=== PATIENT | female | born 2000 | race Caucasian/White ===

== ENCOUNTER 2024-06-07 15:03 | Outpatient (CLI) | payer OTHER, SELFPAY ==
--- NOTE | ~2024-06-07 | CT_ITS ---
EXAMINATION: CTA chest PE protocol DATE: 06/07/2024 15:27 INDICATION: Chronic hypoxia TECHNIQUE: Computed tomography (CT) pulmonary angiogram of the chest was performed with 100 mL Omnipa que-350 intravenous contrast. Additional 3D reconstructions utilizing coronal maximum intensity proje ction (MIP) were performed. Automated exposure control and iterative reconstruction technique were em ployed. The dose-length product was 144.47 mGy-cm. COMPARISON: 03/16/2022 FINDINGS: No pulmonary emboli. Subtle patchy groundglass opacities in the basilar right lower lobe which are ne w since the prior study. No abnormal septal line thickening to suggest pulmonary edema or pleural eff usion. Heart size is normal. No pericardial effusion. Thoracic aorta is normal in caliber with no dis section. No pathologically enlarged thoracic lymphadenopathy. Visualized upper abdomen and bones are unremarkable. IMPRESSION: 1. No pulmonary embolism. 2. Subtle patchy groundglass opacities in the basilar right lower lobe which in the acute setting wou ld most likely represent atelectasis or pneumonia including atypical pneumonia. Additional less likel y considerations would include pulmonary edema, aspiration, pulmonary hemorrhage, acute eosinophilic pneumonia or hypersensitivity pneumonitis. Reviewed, dictated and finalized at location B. IMPRESSION: 1. No pulmonary embolism. 2. Subtle patchy groundglass opacities in the basilar right lower lobe which in the acute setting would most likely represent atelectasis or pneumonia includi ng atypical pneumonia. Additional less likely considerations would include pulm onary edema, aspiration, pulmonary hemorrhage, acute eosinophilic pneumonia or hypersensitivity pneumonitis.
--- OUTSIDE RECORDS SUMMARY | 2024-06-07 17:45 | XMS_ITS | Referral Summary ---
Author Organization [facility] Address [address] [place] [address] Care Team Providers Care Congressional Representative Name Role Phone Berenice Hopper MD Primary Care Provider [phone] Eduardo Cox MD Unavailable [phone] Encounters Date Type Department Care Team Description 05/04/2024 Orders Only [facility] Health Information Management [address] [place] [address] Scanning, Provider from Last 3 Months Allergies No known active allergies Medications medroxyPROGESTE José (DEPO-PROVERA) 150 mg/mL injection Inject 1 mL (150 mg total) into the muscle as instructed every 3 (three) months Active Dupixent Pen pen injector 4 Active butalbital-acet aminophen-caffe ine (ESGIC) 50-325-40 mg per tablet Take 1 tablet by mouth every 4 (four) hours as needed for headaches 30 tablet 1 4 Active propranoloL (INDERAL) 20 mg tablet Take 1 tablet (20 mg total) by mouth nightly 100 tablet 5 Active Active Problems Problem Noted Date Diagnosed Date Physical exam, routine 09/22/2023 Assessment & Plan (09/22/2023 9:39 AM CDT): Age-appropriate preventive care ordered/completed. Will follow-up with results of the labs and repeat exam in 1 year. Migraine with aura and witho ut status migrainosus, not intractable 09/22/2023 Assessment & Plan (09/22/2023 9:39 AM CDT): Likely tension CONRAD currently, but pt is also experiencing migraine. Treat with fioricet and follow-up with neurology. Start propranolol for migraine prevention. Eye twitch 09/22/2023 Assessment & Plan (09/22/2023 9:38 AM CDT): Likely related to stress or anxiety, could also be benign. Treat with propranolol. Follow-up if symptoms persist. Exanthema subitum 09/11/2021 Syncope 09/03/2021 Assessment & Plan (09/03/2021 8:22 AM CDT): Symptoms could be due to vasovagal response, thyroid disorder, electrolyte abnormalities and/or psychological causes. Less likely is cardiac dysfunction and autoimmune disorder. Patient will follow-up if symptoms persist. Chronic intractable headache 09/03/2021 Assessment & Plan (09/22/2023 9:38 AM CDT): Likely tension CONRAD currently, but pt is also experiencing migraine. Treat with fioricet and follow-up with neurology. Assessment & Plan (09/03/2021 8:23 AM CDT): Consider the possibility of migraine. Treat with Fioricet as needed and patient will monitor the occurrence of headache. Follow-up if there is no improvement. Low blood potassium 09/03/2021 Assessment & Plan (09/03/2021 8:23 AM CDT): Check electrolyte levels and replace if needed. Congenital heart defect 09/03/2021 Assessment & Plan (09/03/2021 8:24 AM CDT): Patient has been referred to cardiology for further evaluation. The workup so far has been negative. Eczema 03/31/2011 Adjustment disorder with mixed emotional feature s 03/30/2011 Resolved Problems Problem Noted Date Diagnosed Date Resolved Date Shortness of breath 09/11/2021 09/22/19 24 SOB (shortness of breath) 09/03/2021 Assessment & Plan (09/03/2021 8:23 AM CDT): Unknown etiology. Proceed with Cardiology evaluation. Consider anxiety as a cause. Urinary tract infection 03/31/2011 07/0 11/2023 Immunizations Immunization Administration Dates Next Due DTP 10/01/2007, 4,06/02/2003,02/24,2002 HPV, Quadrivalent 12/19/2014 HPV9 08/06/2016,11/08/2013 Hep A, Pediatric 10/23/2017,08/06/2016 Hep B Vaccine 11/03/2022, 4,2002,10/06 IPV 10/01/2007, 4,02/24/2003,12/20 Influenza, Quadrivalent, Spl it, Preservative Free, Intramuscular 01/02/2023,12/16/2021,12/19/2014 Influenza, Unspecified 04/26/2004,2003,02/24/2003,12/20 MMR 10/01/2007,02/07/2004 Meningococcal B, OMV (Bexsero) 09/22/2023 Meningococcal MCV4P (Menactra) 10/23/2017,2013 Tdap 11/08/2013 Varicella 10/01/2007,01/26/2004 Social History Tobacco Use Types Packs/Day Years Used Date Smoking Tobacco: Never Cigarettes Smokeless Tobacco: Never AUDIT-C Answer Date Recorded Q1: How often do you have a drink containing alc ohol? Never 09/02/2021 Average Number of Drinks Not on file 022 Frequency of Binge Drinking Not on file 08/15 PHQ-2 Answer Date Recorded PHQ-2 Total Score (If total score is 3 or more points, staff should administer the PHQ-9) 0 09/22/2023 Comments Unknown Sex and Gender Information Value Date Recorded Sex Assigned at Not on file Legal Sex Female 7:58 AM BISQUE FINISHER Gender Identity Female 07/09/2023 3:01 PM CDT Sexual Orientation Straight 07/09/2023 3: 01 PM CDT Last Filed Vital Signs Vital Sign Reading Time Taken Comments Blood Pressure 110/90 09/22/2023 8:58 AM CDT Pulse 88 09/22/2023 8:58 AM CDT Temperature 36.8 C (98.2 F) 09/22/2023 8:58 AM CDT Respiratory Rate 18 04/27/2020 2:20 PM BISQUE FINISHER Oxygen Saturation 99% 09/22/2023 8:58 AM CDT Inhaled Oxygen Concentration - - Weight 49.9 kg (110 lb) 09/22/2023 8:58 AM CDT Height 157.5 cm (5' 2 ) 09/22/2023 8:58 AM CDT Body Mass Index 20.12 09/22/2023 8:58 AM CDT Plan of Treatment Not on file Procedures Procedure Name Priority Date/Time Associated Diagnosis Comments SCAN - OTHER ORDERS 05/04/2024 HEPATITIS C ANTIBODY Routine 09/22/2023 2:38 PM CDT Physical exam, routine from Last 3 Months or Most Recently Relevant to Health Maintenance Results * SCAN - OTHER ORDERS (05/04/2024) us Provider Scanning Final Result * Hepatitis C antibody Blood (09/22/2023 2:38 PM CDT) Hep C Ab Nonreactive Nonreactive Comment: Interpretive Data Nonreactive: Antibodies to HCV not detected. Does NOT exclude the possibility of recent exposure to HCV. Equivocal: Equivocal for HCV antibodies. Supplemental molecular testing will be automatically performed to determine infection status in accordance with current CDC screening recommendations. Reactive: Positive for HCV antibodies. This may represent current or past HCV infection. Supplemental molecular testing will be automatically performed to determine current infection status in accordance with current CDC screening recommendations. Interpretive data was last revised on 2019. Blood 09/22/2023 2:38 PM CDT 09/22/2023 2:38 PM CDT us Berenice Hopper MD LAB MICROBIOLOGY - GENERA L ORDERABLES Final Result [facility] [address] [place] [address] from Last 3 Months or Most Recently Relevant to Health Maintenance Insurance [facility] [id number] [place] [address] [facility] Care Teams Congressional Representative Relationship Specialty Start Date End Date Berenice Hopper MD PCP - General Family Medicine 09/02/21 Eduardo Cox MD Concessions Manager Cardiology 09/11/21
--- OUTSIDE RECORDS SUMMARY | 2024-06-07 17:45 | XMS_ITS | Clinical Summary ---
Author Organization [facility] Address [address] [place] [address] Care Team Providers Care Credit Interviewer Name Role Phone Unavailable Primary Care Provider Unavailabl e Social History Tobacco Use Types Packs/Day Years Used Date Smoking Tobacco: Never Assessed Comments Unknown Sex and Gender Information Value Date Recorded Sex Assigned at Not on file Legal Sex Female 5:53 PM CDT Gender Identity Not on file Sexual Orientation Not on file Plan of Treatment Health Maintenance Due Date Last Done Comments Cervical Cancer Screening Pap Smear (Age 21 to 29) Every 3 Years 2002 Cervical Cancer Screening 2002 Annual Physical 2005 Hepatitis C 2020 DTaP, Tdap and Td Vaccines (7 - Td or Tdap) 11/09/2023 11/08/2013, 10/01/2007, 10/22/2003, Additional history exists COVID-19 Vaccine ( season) 2023 06/12/2020, 05/22/2020 Influenza Adult (#1) 2023 01/02/2023, 12/19/2014, 04/26/2004, Additional history exists Meningococcal B Vaccine (2 of 2 - Bexsero SCDM 2-dose series) 03/24/2024 09/22/2023 Hepatitis B Vaccines Completed 10/20/2003, 2002, 2002 HPV Vaccines Completed 08/06/2016, 08/2014, 11/08/2013 Meningococcal Vaccine Aged Out 10/23/2017, 014 No longer eligible based on patient's age to complete this topic Pneumococcal Vaccine: Pediatrics (0 to 5 Years) and At-Risk Patients (6 to 64 Years) Aged Out No longer eligible based on patient's age to complete this topic RSV Immunizations Under 20 Months Aged Out No longer eligible based on patient's age to complete this topic Insurance [employer]
--- OUTSIDE RECORDS SUMMARY | 2024-06-07 17:45 | XMS_ITS | Clinical Summary ---
Author Organization [facility] Address [address] [place] [address] Care Team Providers Care Backend Tester Name Role Phone DevonMunira jha Camille TRACK LAYER-STONECUTTER HAND Primary Care Provid er Source Comments [facility],non-owned Affiliates and Associated Physician Practices is amultiple site organization consisting of ambulatory clinics and hospital sitesin [place], [place], [place] and [place]. This disclosure is being madepursuant to the Care Everywhere program and may not contain all information available regarding this patient. Last updated 17.[facility] Allergies No known active allergies Medications * Be aware that medications may not be up to date on this document. Alwaysverify current medications with the patient. Medication Sig Dispensed Refills Start Date End Date Status ibuprofen (MOTRIN) 400 MG tablet Take 400 mg by mouth every 6 hours as needed for Pain Active Pediatric Multiple Vit-C-FA (FLINSTONES GUMMIES OMEGA-3 DHA) CHEW Active ferrous sulfate 325 (65 FE) MG tablet Take 325 mg by mouth once daily Active cyanocobalamin (VITAMIN B-12) 100 MCG tablet Take 100 mcg by mouth once daily Active medroxyPROGESTERone (DEPO-PROVERA) 150 MG/ML vial Inject 150 mg into muscle Every 90 days Active tacrolimus (PROTOPIC) 0.1 % ointmentIndications:Al lergic contact dermatitis due to chemical Apply to rash on face/hands two times daily. 30 days supply. 100 g 3 05/17/2020 Active ketoconazole (NIZORAL) 2 % shampooIndications:Oth er seborrheic dermatitis Apply to wet hair, leave on for 3 minutes, then rinse; three times weekly. 30 days supply 120 mL 3 05/17/2020 Active estradiol (ESTRACE) 0.5 MG tablet Take 0.5 mg by mouth once daily 08/07/2020 Active Active Problems Problem Noted Date Diagnosed Date Allergic contact dermatitis due to chemical 06/2020 Assessment & Plan (08/23/2020 8:42 PM CDT): - Resolved today - Facial > hand pruritic eruption, onset in Jan 2020 - Ddx includes most likely ACD 2/2 unknown allergen (suspect acrylic nails, hair dye, other personal care product) - S/p patch testing and started to avoid allergens/use protopic PRN for flares - Reviewed etiology, prognosis, and treatment options for ACD - Recommend: Start following CAMP list (All allergen sheets reviewed) Continue Protopic ointment BID PRN for flares Assessment & Plan (05/17/2020 3:10 PM [facility]): - Facial > hand pruritic eruption, onset in Jan 2020 - Ddx includes most likely ACD 2/2 unknown allergen (suspect acrylic nails, hair dye, other personal care product) - Reviewed etiology, prognosis, and treatment options for ACD - Recommend: Starting bland skin care (list provided) Referral for patch testing (NA-80 and cosmetic series), patch packet provided Start using Protopic ointment BID to facial rash May start Zyrtec 10mg daily for itch Other seborrheic dermatitis 05/17/2020 Assessment & Plan (08/23/2020 8:42 PM CDT): -Scalp, improved - Discussed diagnosis, typical course, and treatment options - Cont ketoconazole 2% shampoo TIW to scalp Assessment & Plan (05/17/2020 3:09 PM [facility]): -Scalp, flaring - Discussed diagnosis, typical course, and treatment options - Start ketoconazole 2% shampoo TIW to scalp Screening for cardiovascular condition 9 Infectious mononucleosis without complication Assessment & Plan (04/20/2018 8:30 PM LAB[facility]): Assessment: Buck Morocho is a 17 y.o. female, previously healthy, who presents today with persistent malaise and fatigue x 2 weeks in the setting of recently diagnosed mononucleosis. Diagnosed at initial onset of symptoms 2 weeks ago. Initial hospital work up consistent with mono, otherwise unrevealing. Most likely ongoing mono course, but many other viruses can cause similar course including CMV, HIV, toxoplasma, HHV-6, and hepatitis B (all much less likely). Patient may also have superimposed bacterial infection (although no fevers or other signs of worsening infection). As this is most likely mono, will continue supportive care with fluids and tylenol/NSAIDS. If not improvement seen, may consider prednisolone or acyclovir, although no clear evidence to definitively support these treatments. Plan: - Admit to general medicine, Dr. Hathaway - D5 NS w/ KCl at 90 mL/h - Tylenol Q6 - ibuprofen Q6 prn - Is/Os - Vitals Q8 Left knee injury 06/26/2016 Elbow injury 01/15/2016 Eczema 03/31/2011 Resolved Problems Problem Noted Date Diagnosed Date Resolved Date Dehydration 04/20/2018 05/04/2018 Social History Tobacco Use Types Packs/Day Years Used Date Smoking Tobacco: Never Smokeless Tobacco: Never Alcohol Use Standard Drinks/Week Comments No 0 (1 standard drink = 0.6 oz pur e alcohol) Sex and Gender Information Value Date Recorded Sex Assigned at Not on file Gender Identity Not on file Sexual Orientation Not on file Last Filed Vital Signs Vital Sign Reading Time Taken Comments Blood Pressure 98/62 05/19/2018 1:52 PM [facility] Pulse 90 05/19/2018 1:52 PM [facility] Temperature 36.8 C (98.2 F) 04/21/2018 11:01 AM [facility] Respiratory Rate 18 05/19/2018 1:52 PM [facility] Oxygen Saturation 98% 05/19/2018 1:52 PM [facility] Inhaled Oxygen Concentration - - Weight 52 kg (114 lb 10.2 oz) 05/19/2018 1:52 PM [facility] Height 155 cm (5' 1.02 ) 05/19/2018 1:52 PM [facility] Body Mass Index 21.64 05/19/2018 1:52 PM [facility] Plan of Treatment Health Maintenance Due Date Last Done Comments PAP SMEAR 2002 HIV SCREENING 2017 HPV VACCINE (1 - 3-dose series) 2017 CHLAMYDIA/GONORRHEA SCREENING 2018 MENINGOCOCCAL (Group B) VACC INE SHARED DECISION-MAKING (1 of 2 - Standard) 2018 HEPATITIS C SCREENING 09/30/2020 DTAP/TDAP/TD VACCINES (1 - Tdap) 2021 HEPATITIS B VACCINE (1 of 3 - 19+ 3-dose series) 2021 COVID-19 VACCINE (1 - 2023-2 5 season) 2023 INFLUENZA VACCINE (#1) 2023 DEPRESSION SCREENING 03/16/2024 ZOSTER VACCINE (1 of 2) 2052 HIB VACCINE Aged Out No longer eligi ble based on patient's age to complete this topic MENINGOCOCCAL GROUPS A/C/Y/W VACCINE Aged Out No longer eligible b ased on patient's age to complete this topic PNEUMOCOCCAL VACCINE Aged Out No long er eligible based on patient's age to complete this topic Advance Directives * Full Code (Latest Code Status on File) Date Activated Date Inactivated Comments 04/20/2018 4:44 PM 04/21/2018 6:11 PM Care Teams Backend Tester Relationship Specialty Start Date End Date Munira Pacheco, TRACK LAYER-STONECUTTER HAND [address] [place] [address] PCP - General 05/16/20
--- OUTSIDE RECORDS SUMMARY | 2024-06-07 17:45 | XMS_ITS | Clinical Summary ---
Author Organization [facility] Address [address] [place] [address] Care Team Providers Care Diver'S Tender Name Role Phone Berenice Hopper MD Primary Care Provider [phone] Eduardo Cox MD Unavailable [phone] Allergies No known active allergies Medications medroxyPROGESTE [...] cause. Urinary tract infection 03/31/2011 07/0 11/2023 Encounters Date Type Department Care Team Description 05/04/2024 Orders Only [facility] Health Information Management [address] [place] [address] Scanning, Provider from Last 3 Months Immunizations Immunization Administration Dates Next Due DTP 10/01/2007, 4,06/02/2003,02/24,2002 HPV, Quadrivalent 12/19/2014 HPV9 08/06/2016,11/08/2013 Hep A, Pediatric 10/23/2017,08/06/2016 Hep B Vaccine 11/03/2022, 4,2002,10/06 IPV 10/01/2007, 4,02/24/2003,12/20 Influenza, Quadrivalent, Spl it, Preservative Free, Intramuscular 01/02/2023,12/16/2021,12/19/2014 Influenza, Unspecified 04/26/2004,2003,02/24/2003,12/20 MMR 10/01/2007,02/07/2004 Meningococcal B, OMV (Bexsero) 09/22/2023 Meningococcal MCV4P (Menactra) 10/23/2017,2013 Tdap 11/08/2013 Varicella 10/01/2007,01/26/2004 Surgical History Surgery Date Site/Laterality Comments NO PAST SURGERIES Medical History Medical History Date Comments Exanthema subitum Eczema Syncope Shortness of breath Congenital heart defect Low blood potassium Family History Medical History Relation Name Comments Allergic rhinitis Brother Eczema Brother Heart attack Maternal Grandfather santiago Allergic rhinitis Mother Eczema Mother Relation Name Status Comments Brother Maternal Grandfather santiago Mother Alive Social History Tobacco Use Types Packs/Day Years [...] on file Legal Sex Female 7:58 AM AREA DEVELOPMENT CONSULTANT Gender Identity Female 07/09/2023 3:01 PM CDT Sexual Orientation Straight 07/09/2023 3: 01 PM CDT History Length Weight Head Circum Date/Time Gestation Age D/C Weight APGARs Delivery Method Feeding 2002 Term, uncomplicated Obstetrics History Last Filed Vital Signs Vital Sign Reading Time Taken Comments Blood Pressure 110/90 09/22/2023 8:58 AM CDT Pulse 88 09/22/2023 8:58 AM CDT Temperature 36.8 C (98.2 F) 09/22/2023 8:58 AM CDT Respiratory Rate 18 04/27/2020 2:20 PM AREA DEVELOPMENT CONSULTANT Oxygen Saturation 99% 09/22/2023 8:58 AM CDT Inhaled Oxygen Concentration - - Weight 49.9 kg (110 lb) 09/22/2023 8:58 AM CDT Height 157.5 cm (5' 2 ) 09/22/2023 8:58 AM CDT Body Mass Index 20.12 09/22/2023 8:58 AM CDT Plan of Treatment Health Maintenance Due Date Last Done Comments Cervical Cancer Screening 2002 Chlamydia and Gonorrhea (GC/CT) Screening 2002 DTaP/Tdap/Td Vaccine (7 - Td or Tdap) 11/09/2023 11/08/2013, 10/01/2007, 10/22/2003, Additional history exists Covid-19 Vaccine ( season) 2023 06/12/2020, 05/22/2020 Influenza Vaccine (#1) 2023 3, 12/16/2021, 12/19/2014, Additional history exists Meningococcal B Vaccine (2 of 2 - Bexsero SCDM 2-dose series) 03/24/2024 09/22/2023 Depression Screening 09/21/2024 09/22/2023, 09/03/19 Regular Well Visit/Exam 18-64 09/21/2024 09/22/2023 Varicella Vaccines Completed 10/01/2007, 01/26/2004 HPV Vaccines Completed 08/06/2016, 08/2014, 11/08/2013 Meningococcal Vaccine Aged Out 10/23/2017, 014 No longer eligible based on patient's age to complete this topic Hepatitis B Screening Completed 11/03/2022 , 10/20/2003, 2002, Additional history exists Hepatitis C Screening Completed 09/22/2023 Pneumococcal vaccine <65 Aged Out No longer eligible based on patient's age to complete this topic Procedures Procedure Name Priority Date/Time Associated Diagnosis [...] MICROBIOLOGY - GENERA L ORDERABLES Final Result [facility] [address] Department [place] [address] from Last 3 Months or Most Recently Relevant to Health Maintenance Insurance [facility] [id number] [place] [address] Member Subscriber Plan / Payer (Ef fective 2021-Present) Name:Rashawn Buck Member ID:[id number] Relation to Subscriber:Spouse Name:JAIMIE BAKER Subscriber ID:[id number] Date of :1971 (Home) Address: [address] [place] [address] Payer ID:[id number] (NAIC) Type:[facility] HMO/PPO Address: [place] [phone] [facility] Care Teams Diver'S Tender Relationship Specialty Start Date End Date Berenice Hopper MD PCP - General Family Medicine 09/02/21 Eduardo Cox MD Electrician Master Cardiology 09/11/21
== END 2024-06-07 15:04 | disposition home or self-care (01) ==
DX: R09.02 Hypoxemia (principal); R91.8 Other nonspecific abnormal finding of lung field
CPT/HCPCS: 71275; Q9967